=== PATIENT | male | born 1950 | race Caucasian/White ===

== ENCOUNTER 2018-08-30 10:11 | Inpatient (IN) ==
[2018-08-30 13:32] LABS: Basophils % 0.1 % (0.0-0.8); Hemoglobin 11.4 GM/DL (14.0-18.0); Immature Granulocytes % 0.9 %; Immature Granulocytes Absolute 0.18 #; Lymphocytes # 0.7 10*3/uL (1.4-4.0); Lymphocytes % 3.2 % (21.2-54.2); Mean Corpuscular HGB Conc 33.5 GM/DL (32-36); Mean Corpuscular Hemoglobin 31 PG (27-34); Mean Corpuscular Volume 93.4 FL (87-102); Mean Platelet Volume 9.9 FL (9.6-12.0); Monocytes # 1.2 10*3/uL (0.11-0.8); Monocytes % 5.7 % (1.7-12.7); Neutrophils # 18.6 10*3/uL (1.4-7.4); Neutrophils % 90.1 % (38.7-73.9); Platelet Count 366 T/CUMM (130-400); Red Blood Count 3.64 MC/CUMM (3.8-5.5); White Blood Count 20.7 T/CUMM (4-12)
[2018-08-30 13:56] LABS: Albumin 3.2 G/DL (3.4-5.0); Bilirubin,Total 0.4 MG/DL (0.2-1.0); Calcium 8.4 MG/DL (8.5-10.1); Osmolality,Calculated 268.4 MOS/KG (273-304); Potassium 4.7 MMOL/L (3.5-5.1)
[2018-08-30] MEDS ORDERED: ALBUTEROL/IPRATROPIUM 3 ML NEB RESP TX PRN (16:43)
[2018-08-30 16:50] LABS: Lymphocytes 3 % (20-55); Segmented Neutrophils 91 % (50-85); Total Cells Counted 100
[2018-08-30 16:51] LABS: Anisocytosis 1+
[2018-08-30 16:55] LABS: Macrocytosis 1+
[2018-08-30 16:57] LABS: Platelet Estimate Normal
[2018-08-30] MEDS: chlordiazePOXIDE 10 MG CAPSULE PO SCH (21:03)
[2018-08-30] MEDS: CHLORHEXIDINE 0.12% ORAL RINSE 60 ML BOTTLE SWISH/SPIT SCH (21:04)
[2018-08-30] MEDS: LISINOPRIL 10 MG TABLET PO SCH (21:04)
[2018-08-31 05:39] LABS: Basophils % 0.1 % (0.0-0.8); Eosinophils % 0.3 % (0.00-10.9); Hematocrit 31.3 VOL% (42.0-52.0); Hemoglobin 10.4 GM/DL (14.0-18.0); Immature Granulocytes % 0.7 %; Immature Granulocytes Absolute 0.09 #; Lymphocytes # 1.4 10*3/uL (1.4-4.0); Lymphocytes % 10.3 % (21.2-54.2); Mean Corpuscular HGB Conc 33.2 GM/DL (32-36); Mean Corpuscular Hemoglobin 31 PG (27-34); Mean Corpuscular Volume 93.7 FL (87-102); Monocytes # 1.4 10*3/uL (0.11-0.8); Monocytes % 10.4 % (1.7-12.7); Neutrophils # 10.5 10*3/uL (1.4-7.4); Neutrophils % 78.2 % (38.7-73.9); Platelet Count 335 T/CUMM (130-400); Red Blood Count 3.34 MC/CUMM (3.8-5.5); Red Cell Distribution Width 13.1 % (9.3-17.3); White Blood Count 13.4 T/CUMM (4-12)
[2018-08-31 05:56] LABS: Bilirubin,Total 0.4 MG/DL (0.2-1.0); Calcium 8.2 MG/DL (8.5-10.1); Potassium 4.3 MMOL/L (3.5-5.1); Total Protein 6.1 G/DL (6.4-8.3)
[2018-08-31] MEDS: chlordiazePOXIDE 10 MG CAPSULE PO SCH ×4 (08:42→20:48)
[2018-08-31] MEDS: LISINOPRIL 10 MG TABLET PO SCH ×2 (08:42→20:50)
[2018-08-31] MEDS: CHLORHEXIDINE 0.12% ORAL RINSE 60 ML BOTTLE SWISH/SPIT SCH ×2 (08:43→20:50)
[2018-08-31] MEDS: ENOXAPARIN 40 MG/0.4 ML SYRINGE SUBCUT SCH (08:47)
[2018-08-31] MEDS: ALBUTEROL/IPRATROPIUM 3 ML NEB RESP TX SCH ×4 (10:09→23:44)
[2018-09-01] MEDS: ALBUTEROL/IPRATROPIUM 3 ML NEB RESP TX SCH ×5 (03:31→19:06)
[2018-09-01] MEDS: chlordiazePOXIDE 10 MG CAPSULE PO SCH ×4 (08:50→20:53)
[2018-09-01] MEDS: LISINOPRIL 10 MG TABLET PO SCH ×2 (08:50→20:02)
[2018-09-01] MEDS: CHLORHEXIDINE 0.12% ORAL RINSE 60 ML BOTTLE SWISH/SPIT SCH ×2 (08:50→20:00)
[2018-09-01] MEDS: ENOXAPARIN 40 MG/0.4 ML SYRINGE SUBCUT SCH (09:29)
[2018-09-01] MEDS: CHLORHEXIDINE 4% SOLN 118 ML BOTTLE TOP SCH ×2 (14:57→20:53)
[2018-09-02] MEDS: ALBUTEROL/IPRATROPIUM 3 ML NEB RESP TX SCH ×6 (00:22→19:28)
[2018-09-02] MEDS ORDERED: SODIUM CHLORIDE 0.9% 1,000 ML IV SCH (04:00)
[2018-09-02] MEDS ORDERED: VANCOMYCIN 1,000 MG VIAL ONE (04:58)
[2018-09-02] MEDS ORDERED: TISSUE ADHESIVE 1 EACH APPLICATOR TOP ONE (04:58)
[2018-09-02] MEDS ORDERED: PAPAVERINE 60 MG/2 ML VIAL ONE ×2 (04:58→06:39)
[2018-09-02] MEDS ORDERED: LACTATED RINGERS 1,000 ML IV SCH (05:00)
[2018-09-02] MEDS ORDERED: CEFUROXIME INJ 1,500 MG in SYRINGE 1 EACH IV ONE (06:00)
[2018-09-02] MEDS ORDERED: DIAZEPAM 5 MG TABLET PO ONE (06:00)
[2018-09-02] MEDS ORDERED: FAMOTIDINE 20 MG TABLET PO ONE (06:00)
[2018-09-02] MEDS ORDERED: PHENYLEPHRINE DRIP 20 MG/250 ML PREMIX IV ONE (06:26)
[2018-09-02] MEDS ORDERED: NITROGLYCERIN DRIP 50 MG/250 ML BOTTLE IV ONE (06:26)
[2018-09-02] MEDS: ENOXAPARIN 40 MG/0.4 ML SYRINGE SUBCUT SCH (09:12)
[2018-09-02] MEDS: chlordiazePOXIDE 10 MG CAPSULE PO SCH ×4 (09:13→20:17)
[2018-09-02] MEDS: CHLORHEXIDINE 0.12% ORAL RINSE 60 ML BOTTLE SWISH/SPIT SCH ×3 (09:13→20:17)
[2018-09-02] MEDS: LISINOPRIL 10 MG TABLET PO SCH (09:13)
[2018-09-02] MEDS ORDERED: CALCIUM CHLORIDE 1,000 MG/10 ML VIAL IV ONE ×2 (09:20→14:12)
[2018-09-02] MEDS ORDERED: SUFentanil 250 MCG/5 ML AMP ONE ×2 (09:20)
[2018-09-02] MEDS ORDERED: VECURONIUM 10 MG VIAL IV ONE (09:21)
[2018-09-02] MEDS ORDERED: MINERAL OIL/PETROLATUM OPH OINT 3.5 GM TUBE ONE (09:21)
[2018-09-02] MEDS ORDERED: MIDAZOLAM 10 MG/2 ML VIAL ONE (09:21)
[2018-09-02] MEDS: CHLORHEXIDINE 4% SOLN 118 ML BOTTLE TOP SCH (10:20)
[2018-09-02 11:53] LABS: ABG Base Excess -0.6 MMOL/L (-2.5-2.5); ABG HCO3 23.9 MMOL/L (20-26); ABG PCO2 44.1 MM HG (35-48); ABG PH 7.361 (7.35-7.45); ABG TCO2 22.7 MMOL/L (23-27); Glucose Heart Surgery 111 MG/DL (74-106); Hematocrit Heart Surgery 32.1 PERCENT (42-52); Hemoglobin Heart Surgery 10.4 G/DL (14.0-18.0); Ionized Calcium Arterial 1.08 MMOL/L (1.21-1.46); PCO2 Patient Temp Arterial 44.1 MMHG; PH Patient Temp Arterial 7.361; Patient Temperature 37 CELCIUS; Potassium Heart/CVR 3.6 MMOL/L (3.5-5.1); Sodium Heart/CVR 131 MMOL/L (135-145)
[2018-09-02 12:53] LABS: Hematocrit Heart Surgery 25.9 PERCENT (42-52); Hemoglobin Heart Surgery 8.3 G/DL (14.0-18.0); PCO2 Patient Temp Venous 37.9 MM HG; PH Patient Temp Venous 7.449; PO2 Patient Temp Venous 39.7 MM HG; VBG Base Excess 2.3 MEQ/L (0-4); VBG HCO3 26.1 MEQ/L (24-28); VBG Oxygen Saturation 73.7 %; VBG PCO2 37.9 MMHG (41-51); VBG PH 7.449; VBG PO2 39.7 MMHG (17-40)
[2018-09-02] MEDS ORDERED: ALBUMIN 25% 25 GM/100 ML VIAL IV ONE (13:18)
[2018-09-02] MEDS ORDERED: SODIUM BICARBONATE 50 MEQ/50 ML SYRINGE IV ONE (13:18)
[2018-09-02] MEDS ORDERED: PROTAMINE SULFATE 250 MG/25 ML VIAL IV ONE (13:18)
[2018-09-02] MEDS ORDERED: DEXTROSE 5% KCL 20 MEQ 20 MEQ/1,000 ML BAG IV ONE (13:18)
[2018-09-02] MEDS ORDERED: HEPARIN 10,000 UNIT/10 ML VIAL ONE (13:19)
[2018-09-02] MEDS ORDERED: FUROSEMIDE 20 MG/2 ML VIAL ONE (13:19)
[2018-09-02] MEDS ORDERED: MANNITOL 12.5 GM/50 ML VIAL IV ONE (13:19)
[2018-09-02] MEDS ORDERED: methylPREDNISolone SOD SUC 1,000 MG/8 ML VIAL ONE (13:19)
[2018-09-02] MEDS ORDERED: MAGNESIUM SULFATE 10 GM/20 ML VIAL IV ONE (13:19)
[2018-09-02 13:20] LABS: ABG Base Excess -0.8 MMOL/L (-2.5-2.5); ABG HCO3 23.8 MMOL/L (20-26); ABG PCO2 41.1 MM HG (35-48); ABG PH 7.379 (7.35-7.45); ABG TCO2 22.6 MMOL/L (23-27); Glucose Heart Surgery 259 MG/DL (74-106); Hematocrit Heart Surgery 25.2 PERCENT (42-52); Hemoglobin Heart Surgery 8.1 G/DL (14.0-18.0); Ionized Calcium Arterial 1.37 MMOL/L (1.21-1.46); PCO2 Patient Temp Arterial 41.1 MMHG; PH Patient Temp Arterial 7.379; Patient Temperature 37 CELCIUS; Potassium Heart/CVR 4.5 MMOL/L (3.5-5.1); Sodium Heart/CVR 126 MMOL/L (135-145)
[2018-09-02] MEDS ORDERED: PHENYLEPHRINE DRIP 40 MG/250 ML PREMIX IV PRN (14:00)
[2018-09-02] MEDS: SODIUM CHLORIDE 0.9% 1,000 ML IV PRN ×2 (14:00→15:46)
[2018-09-02] MEDS ORDERED: ACETAMINOPHEN 650 MG SUPP RECTAL PRN (14:11)
[2018-09-02] MEDS ORDERED: CALCIUM CHLORIDE 1,000 MG/10 ML SYRINGE IV PRN (14:11)
[2018-09-02] MEDS ORDERED: MIDAZOLAM 2 MG/2 ML VIAL IV PRN (14:11)
[2018-09-02] MEDS ORDERED: ONDANSETRON 4 MG/2 ML VIAL IV PRN (14:11)
[2018-09-02] MEDS ORDERED: MAGNESIUM SULF RIDER 2 GM in PREMIX 1 EACH IV PRN (14:11)
[2018-09-02] MEDS ORDERED: SODIUM CHLORIDE 0.9% 250 ML IV PRN (14:11)
[2018-09-02] MEDS ORDERED: POTASSIUM CHLORIDE RIDER 10 MEQ in PREMIX 1 EACH IV PRN (14:11)
[2018-09-02] MEDS ORDERED: CHLORHEXIDINE 4% SOLN 118 ML BOTTLE TOP PRN (14:11)
[2018-09-02] MEDS ORDERED: MAGNESIUM SULF RIDER 4 GM in PREMIX 1 EACH IV PRN (14:11)
[2018-09-02] MEDS ORDERED: MORPHINE 10 MG/1 ML VIAL IV PRN (14:11)
[2018-09-02] MEDS ORDERED: DEXTROSE 50% 25 GM/50 ML VIAL IV PRN ×2 (14:11)
[2018-09-02] MEDS ORDERED: POTASSIUM CHLORIDE RIDER 20 MEQ in PREMIX 1 EACH IV PRN (14:11)
[2018-09-02] MEDS ORDERED: SODIUM CHLORIDE 0.9% 1,000 ML IV ONE (14:12)
[2018-09-02] MEDS ORDERED: ETOMIDATE 40 MG/20 ML VIAL IV ONE (14:12)
[2018-09-02] MEDS ORDERED: HEPARIN/NACL 0.9% 2 UNITS/ML 500 ML IV ONE (14:12)
[2018-09-02] MEDS ORDERED: SEVOFLURANE 1 UNIT/15 MINUTE INH ONE (14:12)
[2018-09-02] MEDS ORDERED: SODIUM CHLORIDE 0.9% 100 ML IV ONE (14:12)
[2018-09-02] MEDS ORDERED: METOPROLOL TARTRATE 5 MG/5 ML VIAL IV ONE (14:12)
[2018-09-02] MEDS ORDERED: LACTATED RINGERS 1,000 ML IV ONE ×2 (14:12→16:23)
[2018-09-02] MEDS ORDERED: AMINOCAPROIC ACID 5,000 MG/20 ML VIAL IV ONE (14:12)
[2018-09-02] MEDS ORDERED: SODIUM CHLORIDE 0.9% 250 ML IV ONE (14:12)
[2018-09-02] MEDS ORDERED: ALBUMIN 5% 12.5 GM/250 ML VIAL IV ONE (14:15)
[2018-09-02] MEDS ORDERED: PHENYLEPHRINE DRIP 40 MG/250 ML PREMIX IV ONE (14:26)
[2018-09-02] MEDS ORDERED: SODIUM CHLORIDE 0.45% 1,000 ML IV SCH (14:30)
[2018-09-02] MEDS ORDERED: INSULIN REGULAR DRIP 100 ML IV SCH (14:30)
[2018-09-02 14:58] LABS: ABG Base Excess -0.2 MMOL/L (-2.5-2.5); ABG HCO3 24.3 MMOL/L (20-26); ABG Oxygen Saturation 98.3 % (95-100); ABG PCO2 46.6 MM HG (35-48); ABG PH 7.349 (7.35-7.45); ABG TCO2 23.8 MMOL/L (23-27); Glucose Heart Surgery 177 MG/DL (74-106); Hematocrit Heart Surgery 27.7 PERCENT (42-52); Hemoglobin Heart Surgery 8.9 G/DL (14.0-18.0); Potassium Heart/CVR 4.3 MMOL/L (3.5-5.1)
[2018-09-02] MEDS: ALBUMIN 5% 12.5 GM in PREMIX 1 EACH IV PRN ×2 (15:27→15:30)
[2018-09-02] MEDS: SODIUM CHLORIDE 0.45% 1,000 ML IV SCH (15:27)
[2018-09-02] MEDS ORDERED: ASPIRIN CHEW 81 MG TABLET PO ONE (15:32)
[2018-09-02 17:02] LABS: Basophils % 0.2 % (0.0-0.8); Eosinophils # 0.4 10*3/uL (0.0-0.87); Eosinophils % 3.2 % (0.00-10.9); Hematocrit 26.1 VOL% (42.0-52.0); Hemoglobin 8.5 GM/DL (14.0-18.0); Immature Granulocytes % 2.6 %; Immature Granulocytes Absolute 0.34 #; Lymphocytes # 0.7 10*3/uL (1.4-4.0); Mean Corpuscular HGB Conc 32.6 GM/DL (32-36); Mean Corpuscular Hemoglobin 31 PG (27-34); Mean Corpuscular Volume 95.3 FL (87-102); Mean Platelet Volume 10.2 FL (9.6-12.0); Monocytes # 0.7 10*3/uL (0.11-0.8); Monocytes % 5.4 % (1.7-12.7); Neutrophils % 83.6 % (38.7-73.9); Platelet Count 297 T/CUMM (130-400); Red Blood Count 2.74 MC/CUMM (3.8-5.5); Red Cell Distribution Width 12.9 % (9.3-17.3); White Blood Count 13.2 T/CUMM (4-12)
[2018-09-02 17:08] LABS: INR 1.1; PT Patient Result 11.6 SECS; Partial Thromboplastin Time 29.6 SECS (0-40)
[2018-09-02 17:14] LABS: Blood Urea Nitrogen 15 MG/DL (7-18); Calcium 8.9 MG/DL (8.5-10.1); Glucose 159 MG/DL (74-106); Potassium 4.4 MMOL/L (3.5-5.1); Sodium 136 MMOL/L (136-145)
[2018-09-02 17:25] LABS: Lactic Acid 2.2 MMOL/L (0.4-2.0)
[2018-09-02 19:48] LABS: Apearance,Urine CLEAR (Clear); Bacteria,Urine Occasional /HPF (Few); Bilirubin,Urine Negative (Negative); Blood, Urine Negative (Negative); Glucose,Urine (UA) Negative (Negative); Ketones,Urine Negative (Negative); Nitrite,Urine Negative (Negative); Protein,Urine Negative; RBC,Urine 1 /HPF (0-4); Urine Color Yellow (Yellow); Urine Specific Gravity 1.011 (1.001-1.035); Urine Urobilinogen < 2.0 EU/DL (0.2-1.0); WBC,Urine <1 /HPF (0-6)
[2018-09-02] MEDS ORDERED: CHLORHEXIDINE 0.12% ORAL RINSE 60 ML BOTTLE SWISH/SPIT SCH (21:00)
[2018-09-02] MEDS: INSULIN REGULAR 100 UNIT/ML IV PRN ×2 (21:03→23:28)
[2018-09-02] MEDS: MORPHINE 4 MG/1 ML VIAL IV PRN (21:54)
[2018-09-02] MEDS: CEFUROXIME INJ 1,500 MG in SYRINGE 1 EACH IV SCH (22:08)
[2018-09-03] MEDS: ALBUTEROL/IPRATROPIUM 3 ML NEB RESP TX SCH ×7 (00:05→23:41)
[2018-09-03] MEDS: MORPHINE 4 MG/1 ML VIAL IV PRN ×2 (01:23→04:53)
[2018-09-03] MEDS: SODIUM CHLORIDE 0.45% 1,000 ML IV SCH ×3 (01:38→09:28)
[2018-09-03 03:49] LABS: ABG Base Excess 2.1 MMOL/L (-2.5-2.5); ABG HCO3 26.3 MMOL/L (20-26); ABG Oxygen Saturation 98.5 % (95-100); ABG PCO2 31.6 MM HG (35-48); ABG PH 7.504 (7.35-7.45); ABG TCO2 22.8 MMOL/L (23-27); Glucose Heart Surgery 148 MG/DL (74-106); Hematocrit Heart Surgery 28.3 PERCENT (42-52); Hemoglobin Heart Surgery 9.1 G/DL (14.0-18.0); Potassium Heart/CVR 3.8 MMOL/L (3.5-5.1)
[2018-09-03 04:02] LABS: Basophils % 0.1 % (0.0-0.8); Hematocrit 26.3 VOL% (42.0-52.0); Hemoglobin 8.6 GM/DL (14.0-18.0); Immature Granulocytes % 0.6 %; Immature Granulocytes Absolute 0.09 #; Lymphocytes # 0.5 10*3/uL (1.4-4.0); Lymphocytes % 3.6 % (21.2-54.2); Mean Corpuscular HGB Conc 32.7 GM/DL (32-36); Mean Corpuscular Hemoglobin 31 PG (27-34); Mean Corpuscular Volume 93.3 FL (87-102); Mean Platelet Volume 10.1 FL (9.6-12.0); Monocytes # 0.6 10*3/uL (0.11-0.8); Monocytes % 3.9 % (1.7-12.7); Neutrophils # 13.1 10*3/uL (1.4-7.4); Neutrophils % 91.8 % (38.7-73.9); Platelet Count 298 T/CUMM (130-400); Red Blood Count 2.82 MC/CUMM (3.8-5.5); Red Cell Distribution Width 12.8 % (9.3-17.3); White Blood Count 14.2 T/CUMM (4-12)
[2018-09-03 04:06] LABS: Calcium 8.2 MG/DL (8.5-10.1); Osmolality,Calculated 276.8 MOS/KG (273-304); Potassium 3.9 MMOL/L (3.5-5.1)
[2018-09-03 04:58] LABS: Band Neutrophils 2 % (0-10); Hypochromasia 1+; Lymphocytes 1 % (20-55); Platelet Estimate Adequate; Segmented Neutrophils 94 % (50-85); Total Cells Counted 100
[2018-09-03] MEDS: INSULIN REGULAR 100 UNIT/ML SUBCUT SCH ×4 (08:00→20:41)
[2018-09-03] MEDS: PANTOPRAZOLE 40 MG VIAL IV SCH (09:27)
[2018-09-03] MEDS: CLOPIDOGREL 75 MG TABLET PO SCH (09:27)
[2018-09-03] MEDS: ASPIRIN EC 325 MG TABLET PO SCH (09:27)
[2018-09-03] MEDS: CHLORHEXIDINE 0.12% ORAL RINSE 60 ML BOTTLE SWISH/SPIT SCH ×2 (09:28→20:38)
[2018-09-03] MEDS: FUROSEMIDE 40 MG TABLET PO SCH (09:28)
[2018-09-03] MEDS: chlordiazePOXIDE 10 MG CAPSULE PO SCH ×4 (09:28→20:38)
[2018-09-03] MEDS: CEFUROXIME INJ 1,500 MG in SYRINGE 1 EACH IV SCH ×2 (09:59→22:28)
[2018-09-03] MEDS: NICOTINE 14 MG/24 HR PATCH TRANSDERM SCH (11:39)
[2018-09-03] MEDS: methylPREDNISolone SOD SUC 40 MG/1 ML VIAL IV SCH (12:18)
[2018-09-03] MEDS ORDERED: VILANTEROL TR INH SCH (14:21)
[2018-09-03] MEDS ORDERED: ALBUTEROL 2.5 MG/3 ML NEB RESP TX SCH (14:21)
[2018-09-03] MEDS ORDERED: UMECLIDINIUM BRM INH SCH (14:21)
[2018-09-03] MEDS: ATORVASTATIN 40 MG TABLET PO SCH (20:38)
[2018-09-03] MEDS: DOXYCYCLINE HYCLATE 100 MG CAPSULE PO SCH (20:38)
[2018-09-04] MEDS: MORPHINE 4 MG/1 ML VIAL IV PRN ×2 (00:20→03:00)
[2018-09-04] MEDS: methylPREDNISolone SOD SUC 40 MG/1 ML VIAL IV SCH ×2 (00:58→13:22)
[2018-09-04] MEDS: INSULIN REGULAR 100 UNIT/ML SUBCUT SCH ×6 (00:59→21:39)
[2018-09-04] MEDS: ALBUTEROL/IPRATROPIUM 3 ML NEB RESP TX SCH ×5 (02:56→20:23)
[2018-09-04 05:13] LABS: Basophils % 0.1 % (0.0-0.8); Hematocrit 27.1 VOL% (42.0-52.0); Hemoglobin 8.9 GM/DL (14.0-18.0); Immature Granulocytes % 0.9 %; Immature Granulocytes Absolute 0.17 #; Lymphocytes # 0.5 10*3/uL (1.4-4.0); Lymphocytes % 2.7 % (21.2-54.2); Mean Corpuscular HGB Conc 32.8 GM/DL (32-36); Mean Corpuscular Hemoglobin 31 PG (27-34); Mean Corpuscular Volume 93.1 FL (87-102); Mean Platelet Volume 10.5 FL (9.6-12.0); Monocytes # 1.1 10*3/uL (0.11-0.8); Monocytes % 5.5 % (1.7-12.7); Neutrophils # 17.3 10*3/uL (1.4-7.4); Neutrophils % 90.8 % (38.7-73.9); Platelet Count 344 T/CUMM (130-400); Red Blood Count 2.91 MC/CUMM (3.8-5.5); Red Cell Distribution Width 12.7 % (9.3-17.3)
[2018-09-04 05:52] LABS: Calcium 8.2 MG/DL (8.5-10.1); Potassium 4.3 MMOL/L (3.5-5.1)
[2018-09-04 06:18] LABS: Band Neutrophils 1 % (0-10); Hypochromasia 1+; Lymphocytes 2 % (20-55); Microcytosis 1+; Segmented Neutrophils 91 % (50-85); Total Cells Counted 100
[2018-09-04] MEDS: PANTOPRAZOLE 40 MG VIAL IV SCH (09:23)
[2018-09-04] MEDS: chlordiazePOXIDE 10 MG CAPSULE PO SCH ×4 (09:24→21:40)
[2018-09-04] MEDS: FUROSEMIDE 40 MG TABLET PO SCH (09:24)
[2018-09-04] MEDS: ASPIRIN EC 325 MG TABLET PO SCH (09:24)
[2018-09-04] MEDS: CLOPIDOGREL 75 MG TABLET PO SCH (09:24)
[2018-09-04] MEDS: NICOTINE 14 MG/24 HR PATCH TRANSDERM SCH (09:24)
[2018-09-04] MEDS: DOXYCYCLINE HYCLATE 100 MG CAPSULE PO SCH ×2 (09:24→21:39)
[2018-09-04] MEDS: CHLORHEXIDINE 0.12% ORAL RINSE 60 ML BOTTLE SWISH/SPIT SCH ×2 (09:29→21:46)
[2018-09-04] MEDS: SODIUM CHLORIDE 0.45% 1,000 ML IV SCH (13:20)
[2018-09-04] MEDS: DOCUSATE SODIUM 100 MG CAPSULE PO SCH ×2 (13:20→21:40)
[2018-09-04] MEDS: BISACODYL 5 MG TABLET PO SCH (13:22)
[2018-09-04] MEDS: ATORVASTATIN 40 MG TABLET PO SCH (21:40)
[2018-09-04] MEDS: METOPROLOL TARTRATE 25 MG TABLET PO SCH (23:24)
[2018-09-05] MEDS: ALBUTEROL/IPRATROPIUM 3 ML NEB RESP TX SCH ×7 (00:12→22:59)
[2018-09-05] MEDS: INSULIN REGULAR 100 UNIT/ML SUBCUT SCH ×6 (01:47→20:36)
[2018-09-05] MEDS: methylPREDNISolone SOD SUC 40 MG/1 ML VIAL IV SCH (01:48)
[2018-09-05 04:42] LABS: Basophils % 0.1 % (0.0-0.8); Eosinophils % 0.3 % (0.00-10.9); Hematocrit 26.9 VOL% (42.0-52.0); Hemoglobin 8.9 GM/DL (14.0-18.0); Immature Granulocytes % 1.6 %; Immature Granulocytes Absolute 0.24 #; Lymphocytes # 1.2 10*3/uL (1.4-4.0); Lymphocytes % 8.3 % (21.2-54.2); Mean Corpuscular HGB Conc 33.1 GM/DL (32-36); Mean Corpuscular Hemoglobin 31 PG (27-34); Mean Corpuscular Volume 93.1 FL (87-102); Mean Platelet Volume 9.6 FL (9.6-12.0); Monocytes # 2.1 10*3/uL (0.11-0.8); Monocytes % 13.7 % (1.7-12.7); Neutrophils # 11.4 10*3/uL (1.4-7.4); Platelet Count 322 T/CUMM (130-400); Red Blood Count 2.89 MC/CUMM (3.8-5.5); Red Cell Distribution Width 12.8 % (9.3-17.3)
[2018-09-05 05:08] LABS: Calcium 8.4 MG/DL (8.5-10.1); Potassium 3.8 MMOL/L (3.5-5.1)
[2018-09-05] MEDS: FUROSEMIDE 40 MG TABLET PO SCH (09:36)
[2018-09-05] MEDS: ASPIRIN EC 325 MG TABLET PO SCH (09:36)
[2018-09-05] MEDS: DOXYCYCLINE HYCLATE 100 MG CAPSULE PO SCH ×2 (09:37→20:47)
[2018-09-05] MEDS: METOPROLOL TARTRATE 25 MG TABLET PO SCH ×2 (09:37→20:49)
[2018-09-05] MEDS: chlordiazePOXIDE 10 MG CAPSULE PO SCH ×4 (09:39→20:47)
[2018-09-05] MEDS: NICOTINE 14 MG/24 HR PATCH TRANSDERM SCH (09:39)
[2018-09-05] MEDS: BISACODYL 5 MG TABLET PO SCH (09:39)
[2018-09-05] MEDS: predniSONE 20 MG TABLET PO SCH (09:39)
[2018-09-05] MEDS: DOCUSATE SODIUM 100 MG CAPSULE PO SCH ×2 (09:39→20:47)
[2018-09-05] MEDS: CLOPIDOGREL 75 MG TABLET PO SCH (09:39)
[2018-09-05] MEDS: CHLORHEXIDINE 0.12% ORAL RINSE 60 ML BOTTLE SWISH/SPIT SCH ×2 (09:50→20:51)
[2018-09-05] MEDS: PANTOPRAZOLE 40 MG VIAL IV SCH (09:53)
[2018-09-05] MEDS: SODIUM CHLORIDE 0.45% 1,000 ML IV SCH (10:55)
[2018-09-05] MEDS: ATORVASTATIN 40 MG TABLET PO SCH (20:47)
[2018-09-06] MEDS: INSULIN REGULAR 100 UNIT/ML SUBCUT SCH ×3 (00:32→08:13)
[2018-09-06] MEDS: ALBUTEROL/IPRATROPIUM 3 ML NEB RESP TX SCH ×2 (02:22→08:20)
[2018-09-06 08:41] VITALS: BP 102/66
[2018-09-06] MEDS: BISACODYL 5 MG TABLET PO SCH (09:23)
[2018-09-06] MEDS: CLOPIDOGREL 75 MG TABLET PO SCH (09:23)
[2018-09-06] MEDS: predniSONE 20 MG TABLET PO SCH (09:23)
[2018-09-06] MEDS: ASPIRIN EC 325 MG TABLET PO SCH (09:23)
[2018-09-06] MEDS: DOXYCYCLINE HYCLATE 100 MG CAPSULE PO SCH (09:23)
[2018-09-06] MEDS: FUROSEMIDE 40 MG TABLET PO SCH (09:23)
[2018-09-06] MEDS: METOPROLOL TARTRATE 25 MG TABLET PO SCH (09:23)
[2018-09-06] MEDS: chlordiazePOXIDE 10 MG CAPSULE PO SCH (09:23)
[2018-09-06] MEDS: DOCUSATE SODIUM 100 MG CAPSULE PO SCH (09:23)
[2018-09-06] MEDS: PANTOPRAZOLE 40 MG VIAL IV SCH (09:24)
[2018-09-06] MEDS: NICOTINE 14 MG/24 HR PATCH TRANSDERM SCH (09:24)
[2018-09-06] MEDS: CHLORHEXIDINE 0.12% ORAL RINSE 60 ML BOTTLE SWISH/SPIT SCH (09:33)
[2018-09-06] MEDS: SODIUM CHLORIDE 0.45% 1,000 ML IV SCH (10:40)
== END 2018-09-06 10:49 | disposition home health service (06) | DRG 235 ==
LOC: N.TELES 12:44 → N.CVR 09-02 13:03 → N.TELES 09-03 13:48
PROVIDERS: ADMIT Thoracic Surgery (Cardiothoracic Vascular Surgery); ATTEND Thoracic Surgery (Cardiothoracic Vascular Surgery)